=== PATIENT | female | born 1980 | race Caucasian/White ===

== ENCOUNTER 2023-05-22 13:32 | Emergency (ER) | payer BC, SELFPAY ==
[2023-05-22 13:37] VITALS: BP 124/89; PULSE 91; RESP 22; TEMP 35.7; O2SAT 100; BMI 28.3
--- NOTE | 2023-05-22 13:47 | CRLHL7_ITS ---
For Patients: As a result of the Century Cures Act, medical imaging exams and procedure reports are released immediately into your electronic medical record. You may view this report before your referring provider. If you have questions, please contact your health care provider. INDICATION: Diffuse abdominal pain TECHNIQUE: Axial images were obtained from the diaphragm to the pubic symphysis. Reformats were obtained in the coronal and sagittal plane. IV Contrast: 81 cc Isovue 370 Oral Contrast: None COMPARISON: None. FINDINGS: Lower chest: Unremarkable. Liver: Unremarkable. Normal in size and attenuation. No masses. Gallbladder and bile ducts: Unremarkable. No stones or inflammation. No biliary dilatation. Spleen: Unremarkable. Normal in size without mass. Pancreas: Unremarkable. No mass or inflammation. Adrenal glands: Unremarkable. No nodules. Kidneys: Unremarkable. No masses, stones, or hydronephrosis. Vasculature: Unremarkable. GI tract: The stomach is unremarkable. No dilated loops of large or small intestine. Normal appendix. Colonic diverticulosis with prominent inflammation and wall thickening involving the mid sigmoid colon. Associated small free fluid and prominent fat stranding within the sigmoid mesentery. No discrete/drainable abscess. Pelvis: Unremarkable. Bones: Degenerative disc disease L4-5 and L5-S1. IMPRESSION: Colonic diverticulosis with prominent wall thickening, inflammation and free fluid adjacent to the mid sigmoid colon. This does not appear centered around a particular diverticulum although suspect underlying diverticulitis. Differential diagnosis would include colitis. Please note that all CT scans at this facility use dose modulation, iterative reconstruction, and/or weight-based dosing when appropriate to reduce radiation dose to as low as reasonably achievable. Dictated by Hamlet Ortega MD @ 05/22/2023 3:40:32 PM (Electronically Signed)
--- NOTE | 2023-05-22 13:51 | ED.ABDPAIN ---
HPI - Abdominal Pain General Time Seen by Provider: 13:51 Date Seen: 05/22/23 Chief Complaint: Abdominal Pain Stated Complaint: severe stomach pains Time Seen by Provider: 05/22/23 13:34 Source: patient Mode of arrival: ambulatory Limitations: no limitations History of Present Illness HPI narrative: Patient is a 42-year-old female with a history of rheumatoid arthritis presented emergency department for abdominal pain. Patient states she started developing pain 3 days ago but it was tolerable. She woke up today around 03:00 and since then the pain has been getting worse. Since then the pain has continued to get worse and worse with nothing relieving her symptoms. She states she has intermittent episodes with the pain go from baseline 8/10 to a 12/10 and pain. Pain is all over her abdomen worse in the lower abdominal region. States she has had diverticulitis before but the pain was not this bad. Also states he has not had a normal bowel movement in 3 days. States she usually goes multiple times a day. She has had a couple small bowel movements but she states that is not her normal. She took 1 dose of MiraLax last night. Has had no previous abdominal surgeries. Has had some dysuria. Denies fevers, chills, chest pain, shortness of breath, headache, vision changes, weakness numbness. Does states she had 1 episode of dizziness while on the way to emergency department today but that has since resolved it was the only episode of it. Related Data Home Medications Medication Instructions Recorded Confirmed hydroxychloroquine 200 mg tablet 200 mg PO DAILY 05/22/23 05/22/23 (Plaquenil) Previous Rx's Medication Instructions Recorded amoxicillin 875 mg-potassium 1 tab PO TID #15 tabs 05/22/23 clavulanate 125 mg tablet metronidazole 500 mg tablet 500 mg PO Q8H #15 tabs 05/22/23 sulfamethoxazole 800 1 tab PO Q12H #10 tabs 05/22/23 mg-trimethoprim 160 mg tablet (Bactrim DS) Allergies Allergy/AdvReac Type Severity Reaction Status Date / Time amoxicillin [From Augmentin] Allergy Unknown Hives Verified 05/22/23 16:03 clavulanic acid Allergy Unknown Hives Verified 05/22/23 16:03 [From Augmentin] Review of Systems Status of ROS Reports: 10 or more systems reviewed and unremarkable except as noted in History and below PFSH PFSH Social History Smoking Status: Unknown if ever smoked How often do you have a drink containing alcohol: 4 or more times a week How many standard drinks containing alcohol do you have on a typical day: 1 or 2 How often do you have six or more drinks on one occasion: Weekly AUDIT-C Alcohol total score: 7 Non-prescribed substance use: marijuana (any form) Exam Narrative: Exam Narrative: Const: Well-nourished, Well-developed, in moderate distress Eyes: PERRL, no conjunctival injection, and symmetrical lids ENMT: Atraumatic external nose and ears. Moist mucous membranes. Neck: Symmetric, trachea midline, No thyromegaly. CVS: RRR, No murmurs or gallops. Peripheral pulses 2+ and equal in all extremities RESP: Unlabored respiratory effort. Clear to auscultation bilaterally. GI: Diffuse abdominal tenderness worst in the lower abdominal region, not distended, some guarding MSK:Extremities w/o deformity, Normal Active ROM Skin: Warm, Dry. No rashes or lesions. Neuro: Normal Muscle tone, No focal neurological deficits. Psych: Awake, Alert, & Oriented x3. Appropriate mood and affect. Const: Vital Signs, click to edit/add: Vital Signs - 24 hr 05/22/23 13:37 05/22/23 14:53 05/22/23 16:06 Temperature 96.3 F L 96.3 F L Pulse Rate [Right Pulse Oximeter] 91 91 Respiratory Rate 22 22 Blood Pressure [Ri ght Upper Arm] 124/89 124/89 Pulse Oximetry 100 99 Oxygen Delivery Me thod Room Air Course Vital Signs Vital signs: Initial Vital Signs Temperature 96.3 F L 05/22/23 13:37 Temperature Source Temporal Artery Scan 05/22/23 13:37 Pulse Rate 91 05/22/23 13:37 Pulse Rhythm Regular 05/22/23 13:37 Respiratory Rate 22 05/22/23 13:37 Blood Pressure 124/89 05/22/23 13:37 Blood Pressure Mean 100 05/22/23 13:37 Pulse Oximetry 100 05/22/23 13:37 Oxygen Delivery Method Room Air 05/22/23 13:37 Vital Signs Temperature 96.3 F L 05/22/23 13:37 Pulse Rate 91 05/22/23 13:37 Respiratory Rate 22 05/22/23 13:37 Blood Pressure 124/89 05/22/23 13:37 Pulse Oximetry 100 05/22/23 13:37 Oxygen Delivery Method Room Air 05/22/23 13:37 Temperature 96.3 F L 05/22/23 16:06 Pulse Rate 91 05/22/23 16:06 Respiratory Rate 22 05/22/23 16:06 Blood Pressure 124/89 05/22/23 16:06 Pulse Oximetry 99 05/22/23 14:53 Oxygen Delivery Method Room Air 05/22/23 13:37 MDM - Abdominal Pain MDM Narrative Medical decision making narrative: Patient is a 42-year-old female presented emergency department for abdominal pain. Pain 1st started 3 days ago for a stroke today with worsening pain. No previous abdominal surgeries. She has been having, constipation. Has had history of diverticulitis. The pain has never been this bad before. Right now at this time differential includes cholecystitis, SBO, constipation, pancreatitis, diverticulitis, appendicitis. She still has her ovaries and while unlikely ovarian torsion is considered. CBC, CMP, lipase, urinalysis, CT scan abdomen pelvis all ordered. Also ordered morphine for pain and Zofran for nausea. Will give the patient 1 L of fluids. patient's lab work returned with an elevated white count 13. Rest of her lab works are no acute concerning abnormalities. Her symptoms were improved with morphine and Zofran. She did develop some more pain and Toradol was given. CT scan of the abdomen pelvis shows concerns for diverticulitis. This is consistent with her symptoms. Patient is allergic to Augmentin and so patient placed on Flagyl and Bactrim. I informed her state Tylenol ibuprofen for pain and opioids would cause worsening of her constipation. There is no clear what taking the Bactrim and Colace consistently. She is agreeable to this plan. Lab Data Labs: Lab Results 05/22/23 05/22/23 Range/Units 13:47 14:00 WBC 13.52 H (4.50-11.00) K/uL RBC 4.48 (4.00-5.20) m/uL Hgb 14.5 (12.0-16.0) gm/dL Hct 41.3 (33.0-51.0) % MCV 92 (80-100) fL MCH 32 (26-34) pg MCHC 35 (32-36) gm/dL RDW Coeff of [place] 11.5 (11.5-15.5) % Plt Count 263 (140-440) K/uL Neut % (Auto) 82.5 H (42.0-72.0) % Lymph % (Auto) 9.7 L (20-44) % [place] % (Auto) 6.8 (0.0-11.0) % Eos % (Auto) 0.5 (0.0-7.0) % Baso % (Auto) 0.4 (0.0-3.0) % Neut # (Auto) 11.20 H (1.7-7.0) K/uL Lymph # (Auto) 1.30 (0.90-2.90) K/uL [place] # (Auto) 0.90 (0.00-0.90) K/UL Eos # (Auto) 0.10 (0.00-0.50) K/uL Baso # (Auto) 0.10 (0.00-0.30) K/uL Abs Immat Gran (auto) 0.00 (0.00-0.30) K/uL Imm/Tot Granulo (auto) 0.1 % Sodium 135 (135-149) mmol/L Potassium 3.2 L (3.6-5.1) mmol/L Chloride 103 (96-114) mmol/L Carbon Dioxide 22 (20-32) mmol/L BUN 9 (5-24) mg/dL Creatinine 0.8 (0.5-1.5) mg/dL Estimated Creat Clear 80.72 Estimated GFR 95 ml/min Glucose 109 (60-115) mg/dL Calcium 9.5 (8.4-10.6) mg/dL Total Bilirubin 1.8 H (0.1-1.5) mg/dL AST 20 (12-35) U/L ALT 20 (4-35) U/L Alkaline Phosphatase 56 (40-150) U/L Total Protein 8.1 (6.0-8.3) g/dL Albumin 4.7 (3.3-5.0) g/dL Lipase 47 (23-300) U/L Urine Color Dark yellow (Yellow) Urine Appearance Slightly Cloudy A (Clear) Urine pH 8.5 (5.0-8.5) Ur Specific [place] 1.015 (1.000-1.030) Urine Protein 1+ A (Negative) Urine Glucose (UA) Negative (Negative) Urine Ketones Trace A (Negative) Urine Blood 1+ A (Negative) Urine Nitrite Negative (Negative) Urine Bilirubin Negative (Negative) Urine Urobilinogen 0.2 (0.2-1.0) Ur Leukocyte Esterase Negative (Negative) Urine RBC 0-2 (0-2) Urine WBC 0-2 (0-5) Ur Squamous Epith Cells Few (None-Few) Urine Bacteria None (None) Urine HCG, Qual Negative (Negative) Discharge Plan Discharge Clinical Impression: Diverticulitis Constipation Qualifiers: Constipation type: unspecified constipation type Qualified Code(s): K59.00 - Constipation, unspecified Patient Disposition: Home, Self-Care Condition: Improved Instructions: Diverticulitis (DC), Constipation (DC) Additional Instructions: Your CT appears to show diverticulitis and constipation. Take the MiraLax and Colace daily for constipation. It will take a few days for the effects to be noticed. Take the antibiotics as directed. Take Tylenol and ibuprofen for pain. Opioids for pain pain management would cause worsening constipation this time and are not recommended. Return for new or worsening symptoms. Prescriptions: New amoxicillin-pot clavulanate 875-125 mg tablet 1 tab PO TID Qty: 15 0RF sulfamethoxazole-trimethoprim [Bactrim DS] 800-160 mg tablet 1 tab PO Q12H Qty: 10 0RF metronidazole 500 mg tablet 500 mg PO Q8H Qty: 15 0RF No Action hydroxychloroquine [Plaquenil] 200 mg tablet 200 mg PO DAILY Follow Up/Referrals: Provider,Not a Local [Primary Care Provider] - Stand Alone Forms: Blockade Medical Info Instructions
[2023-05-22] MEDS: MORPHINE 4 MG/ML INJ IVP (14:07)
[2023-05-22 14:08] LABS: Basophils Percent Auto 0.4 % (0.0-3.0); Eosinophils Percent Auto 0.5 % (0.0-7.0); Hematocrit 41.3 % (33.0-51.0); Hemoglobin* 14.5 gm/dL (12.0-16.0); Immature Granulocytes Pct Auto 0.1 %; Lymphocytes Percent Auto 9.7 % (20-44); Mean Corpuscular HGB Conc 35 gm/dL (32-36); Mean Corpuscular Hemoglobin 32 pg (26-34); Mean Corpuscular Volume 92 fL (80-100); Monocytes Percent Auto 6.8 % (0.0-11.0); Neutrophils Percent Auto 82.5 % (42.0-72.0); Platelet Count* 263 K/uL (140-440); RDW Coefficient of Variation % 11.5 % (11.5-15.5); Red Blood Count 4.48 m/uL (4.00-5.20); Slide Review Reflex No; White Blood Count* 13.52 K/uL (4.50-11.00)
[2023-05-22] MEDS: ONDANSETRON 2 MG/ML inj 4 MG IVP (14:13)
--- NOTE | 2023-05-22 14:15 | ED.NURSE ---
pt had a yellow-tinged emesis while in room
[2023-05-22 14:20] LABS: Albumin* 4.7 g/dL (3.3-5.0); Chloride* 103 mmol/L (96-114); Potassium* 3.2 mmol/L (3.6-5.1); Sodium* 135 mmol/L (135-149)
[2023-05-22 14:22] LABS: Creatinine* 0.8 mg/dL (0.5-1.5); Est. Creatinine Clearance* 80.72; Estimated Glomerular Filt Rate 95 ml/min
[2023-05-22 14:23] LABS: Alanine Aminotransferase* 20 U/L (4-35); Alkaline Phosphatase* 56 U/L (40-150); Aspartate Amino Transferase* 20 U/L (12-35); Bilirubin Total* 1.8 mg/dL (0.1-1.5); Blood Urea Nitrogen* 9 mg/dL (5-24); Calcium* 9.5 mg/dL (8.4-10.6); Carbon Dioxide* 22 mmol/L (20-32); Glucose* 109 mg/dL (60-115); Lipase* 47 U/L (23-300); Total Protein* 8.1 g/dL (6.0-8.3)
[2023-05-22] MEDS: LACTATED RINGERS 1000 ML 1,000 ML IV (14:32)
[2023-05-22 14:47] LABS: Appearance Urine Slightly Cloudy (Clear); Bilirubin Urine Negative (Negative); Blood Urine 1+ (Negative); Color Urine Dark yellow (Yellow); Glucose Urine Negative (Negative); Ketones Urine Trace (Negative); Leukocyte Esterase Urine Negative (Negative); Nitrite Urine Negative (Negative); Protein Urine 1+ (Negative); Specific Gravity Urine 1.015 (1.000-1.030); Urobilinogen Urine 0.2 (0.2-1.0); pH Urine 8.5 (5.0-8.5)
[2023-05-22 14:51] LABS: Ur HCG Qualitative* Negative (Negative)
[2023-05-22 14:53] VITALS: O2SAT 99
[2023-05-22 15:04] LABS: RBC Urine 0-2 (0-2); Squamous Epithelial Cell Urine Few (None-Few); WBC Urine 0-2 (0-5)
[2023-05-22] MEDS: KETOROLAC 15 MG/ML inj IVP (15:11)
[2023-05-22 16:06] VITALS: BP 124/89; PULSE 91; RESP 22; TEMP 35.7
--- NOTE | 2023-05-22 16:07 | ED.NURSE ---
Pt reports allergy to Augmentin (itching over whole body). Allergies updated. MD notified and new abx requested.
== END 2023-05-22 16:15 | disposition home or self-care (01) ==
PROVIDERS: Emergency Provider Student in an Organized Health Care Education/Training Program
DX: K57.92 Diverticulitis of intestine, part unspecified, without perforation or abscess without bleeding (principal)
CPT/HCPCS: 36415; 74177; 80053; 81001; 81025; 83690; 85025; 94761; 96374; 96375; 99283; 99284; 99285; J1885; J2270; J2405; J7120; Q9967